=== PATIENT | female | born 1980 | race Caucasian/White ===

== ENCOUNTER 2020-03-14 03:55 | Inpatient (IN) | payer OTHER ==
[~2020-03-14] VITALS: Ht 157.5 cm; Wt 59.0 kg
--- NOTE | 2020-03-14 07:30 | NUR ---
RECEIVED REPORT FROM LINDA DAWN). Addendum: 03/14/20 at 1925 by SUSANNE BEACH RN ADDITIONAL NOTES: ACCORDING TO HUMA CERVANTES) FROM ER DEPT LINDA LIMA, PT IS NEGATIVE FOR RAPID COVID TEST.
--- NOTE | 2020-03-14 08:15 | NUR ---
DISPLAY DIRECTOR ADMISSION NOTES RECEIVED PT ALERT AND ORIENTED X4. AMBULATES INDEPENDENTLY WITH STEADY GAIT. INDEPENDENT WITH BOWEL AND BLADDER HABITS. WITH NO ACUTE DISTRESS AT THIS TIME. NO COMPLAIN OF PAIN OR DISCOMFORT AT THIS TIME. ON ROOM AIR WITH O2 SAT 100%. ADMISSION CARE GIVEN. TELE MONITOR APPLIED PER PROTOCOL WITH READING OF NSR AND HR IN 80S. IV#20 ON LEFT AC INTACT AND FLUSHED WELL. BED KEPT IN LOWEST POSITION POSSIBLE. SAFETY PRECAUTIONS PROVIDED. WILL CONTINUE TO MONITOR.
--- NOTE | 2020-03-14 08:18 | NUR ---
RN NOTES BODY CHECK DONE UPON ADMISSION. SKIN IS INTACT WITH NO REDNESS, OPEN WOUNDS OR OTHER SKIN ISSUES.
[2020-03-14] MEDS ORDERED: INSU100V7 SQ (08:53)
[2020-03-14] MEDS ORDERED: INSU100V36 SQ (08:53)
[2020-03-14] MEDS ORDERED: METH5TAB6 PO (08:53)
[2020-03-14] MEDS ORDERED: BLOO-668 IN (08:53)
[2020-03-14 12:00] VITALS: BP 121/78
[2020-03-14] MEDS ORDERED: INSULIN REGULAR, HUMAN 100 UNIT/ML 3 ML VIAL SQ PRN (12:00)
[2020-03-14] MEDS ORDERED: HYDROCODONE/APAP 5/325MG TABLET PO PRN (12:00)
[2020-03-14] MEDS ORDERED: DEXTROSE 50%-WATER 50 ML DISP.SYRIN IV PRN ×2 (12:00→22:30)
[2020-03-14] MEDS ORDERED: ONDANSETRON HCL/PF 4 MG/2 ML VIAL IVP PRN (12:00)
[2020-03-14] MEDS ORDERED: IV NS 0.9% 1,000 ML IV PRN (12:00)
[2020-03-14] MEDS ORDERED: MAGNESIUM HYDROXIDE 30 ML UDC PO PRN (12:00)
[2020-03-14] MEDS ORDERED: Z GUARD REMEDY 2 OZ OINT TP PRN (12:00)
[2020-03-14] MEDS ORDERED: MAG HYDROX/AL HYDROX/SIMETH 30 ML UDC PO PRN (12:00)
[2020-03-14] MEDS ORDERED: ACETAMINOPHEN 325 MG TABLET PO PRN (12:00)
[2020-03-14] MEDS: BLOOD SUGAR DIAGNOSTIC 1 EACH STRIP VI SCH ×3 (12:32→22:01)
[2020-03-14] MEDS: *INSULIN REGULAR(HUMULIN R)HUM 100 UNIT/ML VIAL SQ PRN ×3 (12:43→22:02)
[2020-03-14 12:46] LABS: BASOPHILS % (AUTO) 0.5 % (0.0-2.0); EOSINOPHILS % (AUTO) 0.9 % (0.0-6.0); HEMATOCRIT 45 % (33-45); HEMOGLOBIN 14.6 g/dL (11.5-14.8); LYMPHOCYTES % (AUTO) 20.8 % (20.0-44.0); MEAN CORPUSCULAR HGB CONC 32 g/dl (31.0-36.0); MEAN CORPUSCULAR VOLUME 92 fL (82-100); MONOCYTES # (AUTO) 0.7 /CMM (0.1-1.30); MONOCYTES % (AUTO) 7.5 % (2.0-12.0); NEUTROPHILS # (AUTO) 6.9 /CMM (1.8-8.9); NEUTROPHILS % (AUTO) 70.3 % (43.0-81.0); PLATELET COUNT (AUTO) 276 /CMM (150-450); RED BLOOD CELL COUNT(AUTO) 4.93 MIL/uL (4.0-5.2); WHITE BLOOD COUNT (AUTO) 9.8 K/uL (4.3-11.0)
[2020-03-14 12:51] LABS: CALCIUM, SERUM 8.1 mg/dL (8.5-10.1); CREATININE 0.6 mg/dL (0.6-1.3); POTASSIUM 3.8 mmol/L (3.5-5.1)
[2020-03-14 16:46] VITALS: BP 128/70
--- NOTE | 2020-03-14 18:53 | NUR ---
CLAIMS COUNSEL TELE NOTES PT REMAINS ALERT AND ORIENTED X4. NOT IN ANY ACUTE DISTRESS. IV#20 ON LEFT AC INTACT AND FLUSHED. INDEPENDENT WITH BED MOBILITY AND BOWEL AND BLADDER HABITS. SAFETY PRECAUTIONS OBSERVED. BED KEPT LOW POSSIBLE. WILL ENDORSE TO NEXT SHIFT FOR ELIDA.
--- NOTE | 2020-03-14 19:30 | NUR ---
RN OPENING NOTE RECEIVED PATIENT IN BED, AO X 4, IN NO S/SX OF ACUTE DISTRESS AT THIS TIME. NO SOB NOTED. PATIENT'S BREATHING IS EVEN AND UNLABORED, SATURATING 100% ON ROOM AIR. HR IS 72. NOTED IV SITE AT LEFT AC G20, PATENT AND FLUSHING WELL, NO S/S OF INFECTION OR INFILTRATION, WITH NS INFUSING AT 100 ML/HR. PATIENT IS AMBULATORY. SAFETY MEASURES IMPLEMENTED PER PROTOCOL. CALL LIGHT WITHIN REACH OF THE PATIENT. WILL CONTINUE TO MONITOR AND REASSESS FOR ANY CHANGES.
[2020-03-14 20:00] VITALS: BP 112/70
--- NOTE | 2020-03-14 21:00 | NUR ---
RN NOTE MRSA SWAB COLLECTED VIA R NOSTRIL. LAB NOTIFIED, SPOKE WITH DANIEL AND ACKNOWLEDGED.
--- NOTE | 2020-03-14 22:00 | NUR ---
RN NOTE ACCUCHECK RESULTED 439, 10 UNITS GIVEN, GRADER PATROL AWARE, DR RIOJAS NOTIFIED. RECEIVED ORDERS FOR LANTUS 15 UNITS SQ HS, AND CHANGE SLIDING SCALE TO AGGRESSIVE.
--- NOTE | 2020-03-14 22:05 | NUR ---
2205 DR. RIOJAS NOTIFIED OF PATIENT'S BLOOD SUGAR OF 439MG/DL. AWAITING CALL BACK. PATIENT AWAKE IN BED. NO SIGNS OF HYPERGLYCEMIA NOTED.
--- NOTE | 2020-03-14 22:09 | NUR ---
9113 DR RIOJAS REPLIED WITH ORDERS TO START PATIENT ON LANTUS AND TO INCREASE SLIDING SCALE TO AGGRESSIVE. ORDER NOTED AND CARRIED OUT PATIENT MADE AWARE OF NEW ORDERS.
[2020-03-14] MEDS ORDERED: *INSULIN REGULAR(HUMULIN R)HUM 100 UNIT/ML VIAL SQ PRN (22:30)
[2020-03-14] MEDS: BLOOD SUGAR DIAGNOSTIC 1 EACH STRIP IN SCH (22:30)
[2020-03-14] MEDS ORDERED: INSULIN GLARGINE, 100 UNIT/ML CARTRIDGE SQ SCH (22:30)
[2020-03-15] VITALS: BP 112/70
--- NOTE | 2020-03-15 03:41 | NUR ---
RN NOTE PATIENT REQUESTED IV LINE AT [facility] REMOVED IT HURTS AND IT BOTHERS HER. SAID IF NOT, SHE WILL TAKE IT OFF BY HERSELF. PATIENT CURRENTLY ON CCHO 60 GM DIET AND NO FLUID RESTRICTIONS. IV LINE REMOVED ASEPTICALLY. ENTREPRENEUR MADE AWARE.
[2020-03-15 04:00] VITALS: BP 93/53
[2020-03-15 06:40] LABS: BASOPHILS % (AUTO) 0.4 % (0.0-2.0); EOSINOPHILS % (AUTO) 1.8 % (0.0-6.0); HEMATOCRIT 38 % (33-45); HEMOGLOBIN 12.9 g/dL (11.5-14.8); LYMPHOCYTES # (AUTO) 2.9 /CMM (0.8-4.8); LYMPHOCYTES % (AUTO) 44.7 % (20.0-44.0); MEAN CORPUSCULAR HGB CONC 34 g/dl (31.0-36.0); MEAN CORPUSCULAR VOLUME 88 fL (82-100); MONOCYTES # (AUTO) 0.7 /CMM (0.1-1.30); MONOCYTES % (AUTO) 11.1 % (2.0-12.0); NEUTROPHILS # (AUTO) 2.8 /CMM (1.8-8.9); PLATELET COUNT (AUTO) 265 /CMM (150-450); RED BLOOD CELL COUNT(AUTO) 4.35 MIL/uL (4.0-5.2); WHITE BLOOD COUNT (AUTO) 6.6 K/uL (4.3-11.0)
[2020-03-15] MEDS: BLOOD SUGAR DIAGNOSTIC 1 EACH STRIP IN SCH ×2 (07:31→11:30)
[2020-03-15] MEDS: INSULIN REGULAR, HUMAN 100 UNIT/ML 3 ML VIAL SQ PRN ×2 (07:34→11:36)
--- NOTE | 2020-03-15 07:39 | NUR ---
RN CLOSING NOTE PATIENT REMAINS IN ROOM. NO SIGNS OF RESPIRATORY DISTRESS. SAFETY MEASURES IMPLEMENTED, CALL LIGHT WITHIN REACH OF PATIENT. ALL NEEDS ADDRESSED DURING THE SHIFT. ALL DUE MEDS GIVEN ORDERED & SCHEDULED; PATIENT TOLERATED WELL. ENDORSED TO JULIA ROMERO FOR CONTINUATION OF CARE.
[2020-03-15 07:42] LABS: CALCIUM, SERUM 8.3 mg/dL (8.5-10.1); CREATININE 0.4 mg/dL (0.6-1.3); POTASSIUM 2.9 mmol/L (3.5-5.1)
--- NOTE | 2020-03-15 08:00 | NUR ---
RN NOTES RECEIVED PATIENT IN THE BED RESTING. A/O X4, REFUSED PAIN, NO ACUTE RESPIRATORY DISTRESS. PATIENT REFUSED IV ACCESS BECAUSE OF PAINFUL. PATIENT SELF CARE, TOLERATED BREAKFAST WELL. WILL CONTINUED MONITORING.
[2020-03-15 08:39] VITALS: BP 101/65
[2020-03-15] MEDS ORDERED: AMOX-430 PO (09:24)
--- NOTE | 2020-03-15 09:43 | NUR ---
RN NOTES SEEN PATIENT BY HOSPITALIST PATIENT GOING HOME SELF CARE.
[2020-03-15] MEDS ORDERED: POTASSIUM CHLORIDE 20 MEQ TAB.PRT.SR PO ONE (10:30)
[2020-03-15 12:00] VITALS: BP 105/67
--- NOTE | 2020-03-15 13:18 | NUR ---
RENE INSULATION WORKER NOTES PATIENT DISCHARGE AT THIS TIME GOING HOME SELF CARE. PATIENT STABLE REFUSED PAIN, BS-295 MG/DL COVERAGE GIVEN, V/S WNL. MED RECONCILIATION AND DISCHARGE ORDERS REVIEWED AND EXPLAINED TO THE PATIENT. PATIENT VERBALIZED UNDERSTANDING. BELONGING WITH THE PATIENT, PATIENT SIGN PAPERWORK. PRESCRIPTION HANDED TO THE PATIENT. PATIENT WILL FOLLOW PRIMARY MD. PATIENT ESCORT[facility] TO THE [facility] FOR SAFETY. PATIENT PHOTOGRAPHIC EQUIPMENT TECHNICIAN BY FRIEND NAME RENY PHONE # [phone].
== END 2020-03-15 13:35 | disposition home or self-care (01) | DRG 420 ==
LOC: TELE1 08:21 → MEDSG1 13:02
PROVIDERS: ADMIT Internal Medicine; ATTEND Internal Medicine
DX: E11.00 Type 2 diabetes mellitus with hyperosmolarity without nonketotic hyperglycemic-hyperosmolar coma (NKHHC) (principal); E86.0 Dehydration; E87.6 Hypokalemia; E87.1 Hypo-osmolality and hyponatremia; E05.90 Thyrotoxicosis, unspecified without thyrotoxic crisis or storm; E11.65 Type 2 diabetes mellitus with hyperglycemia; Z79.4 Long term (current) use of insulin; K05.319 Chronic periodontitis, localized, unspecified severity; E86.1 Hypovolemia; N17.9 Acute kidney failure, unspecified
CPT/HCPCS: 36415; 80048-TC; 82962-TC; 85025-TC; 87040-TC; 87081-TC; G0378; J1815; J7030

== ENCOUNTER 2020-07-19 19:33 | Inpatient (IN) | payer OTHER ==
[~2020-07-19] VITALS: Ht 157.5 cm; Wt 45.4 kg
[~2020-07-19 19:33] MED LIST: AMOX-430 PO; BLOO-668 IN; INSU100V36 SQ; INSU100V7 SQ; METH5TAB6 PO
--- NOTE | 2020-07-19 19:43 | NUR ---
BG 435
[2020-07-19 19:57] LABS: BASOPHILS # (AUTO) 0.1 /CMM (0.0-0.2); BASOPHILS % (AUTO) 0.5 % (0.0-2.0); EOSINOPHILS % (AUTO) 0.1 % (0.0-6.0); HEMATOCRIT 53 % (33-45); LYMPHOCYTES % (AUTO) 15.9 % (20.0-44.0); MEAN CORPUSCULAR HGB CONC 32 g/dl (31.0-36.0); MEAN CORPUSCULAR VOLUME 96 fL (82-100); MONOCYTES # (AUTO) 1.2 /CMM (0.1-1.30); MONOCYTES % (AUTO) 9.3 % (2.0-12.0); NEUTROPHILS # (AUTO) 9.4 /CMM (1.8-8.9); NEUTROPHILS % (AUTO) 74.2 % (43.0-81.0); PLATELET COUNT (AUTO) 341 /CMM (150-450); RED BLOOD CELL COUNT(AUTO) 5.49 MIL/uL (4.0-5.2); WHITE BLOOD COUNT (AUTO) 12.6 K/uL (4.3-11.0)
--- NOTE | 2020-07-19 20:21 | NUR ---
RADIOLOGY AT BEDSIDE FOR CXR
[2020-07-19] MEDS ORDERED: IV NS 0.9% 1,000 ML BAG IV ONE ×2 (20:30→22:00)
[2020-07-19] MEDS ORDERED: LORAZEPAM INJ 2 MG/ML VIAL ONE (20:58)
[2020-07-19] MEDS ORDERED: LORAZEPAM INJ 2 MG/ML VIAL IV ONE (21:00)
[2020-07-19 21:07] LABS: ALANINE AMINOTRANSFERASE 17 U/L (12-78); ALBUMIN 3.3 g/dL (3.4-5.0); ALKALINE PHOSPHATASE 128 U/L (46-116); ASPARTATE AMINOTRANSFERASE 13 U/L (15-37); B-TYPE NATRIURETIC PEPTIDE 44 PG/ML (0-125); BILIRUBIN,DIRECT 0.1 mg/dL (0.0-0.2); BILIRUBIN,TOTAL 0.3 mg/dL (0.2-1.0); CALCIUM, SERUM 8.3 mg/dL (8.5-10.1); CHLORIDE 98 mmol/L (98-107); CREATININE 0.8 mg/dL (0.6-1.3); SODIUM SERUM 130 mmol/L (136-145); TOTAL PROTEIN, SERUM 7.4 g/dL (6.4-8.2); UREA NITROGEN, BLOOD 16 mg/dL (7-18)
--- NOTE | 2020-07-19 21:19 | NUR ---
CO2 LESS THAN 5 GLUCOSE 418
[2020-07-19 21:20] LABS: CARBON DIOXIDE < 5 mmol/L (21-32); GLUCOSE 418 mg/dL (74-106)
[2020-07-19] MEDS ORDERED: INSULIN REGULAR, HUMAN 100 UNIT/ML 10 ML VIAL ONE (21:55)
[2020-07-19 21:56] LABS: ABG BASE EXCESS -29.9 mmol/L; ABG OXYGEN SATURATION 98.2 % (92.0-98.5); ABG PH 6.886 (7.350-7.450); ABG PO2 162.8 mmHg (75.0-100.0); AaDO2 23.9 mmHg; COHb 0.2 % (0.5-1.5); MetHb 0.5 % (0.0-1.5); O2Hb 97.5 % (94.0-97.0); SITE, ABG Right Radial; VENT MODE, BG 2 LNC
[2020-07-19] MEDS ORDERED: INS (REG) DRIP 100 U/100 ML NS IV PRN ×2 (22:00)
[2020-07-19] MEDS ORDERED: Potassium Chloride 30 MEQ in IV NS 0.9% 1,000 ML IV ONE (22:00)
[2020-07-19] MEDS ORDERED: INSULIN REGULAR, HUMAN 100 UNIT in IV NS 0.9% 99 ML IV PRN ×4 (22:00→22:30)
[2020-07-19] MEDS ORDERED: ACETAMINOPHEN 325 MG TABLET PO PRN (22:30)
[2020-07-19] MEDS ORDERED: Sodium Bicarbonate 150 MEQ in IV NS 0.9% 1,000 ML IV PRN (22:30)
[2020-07-19] MEDS ORDERED: ONDANSETRON HCL/PF 4 MG/2 ML VIAL IVP PRN (22:30)
--- NOTE | 2020-07-19 22:43 | NUR ---
COVID SWAB SENT TO LAB
--- NOTE | 2020-07-19 23:00 | NUR ---
CLINICAL INFORMATION GIVEN TO CASE LILIA POOL. PER CORINE, VERBAL AUTH TO ADMIT TO [facility] ER
--- NOTE | 2020-07-19 23:02 | NUR ---
LAB CALLED REGARDING NEGATIVE COVID RESULT.
--- NOTE | 2020-07-19 23:16 | NUR ---
Pt receiving insulin infusion for DKA. Pt is confused and withdrawns, follows most simple commands. Restless. will continue to monitor. Awaiting bed assignment to transfer to ICU.
[2020-07-19 23:22] LABS: BILIRUBIN,URINE Negative (NEGATIVE); COLOR,URINE YELLOW (YELLOW); LEUKOCYTE ESTERASE ,URINE Negative (NEGATIVE); NITRITE, URINE Negative (NEGATIVE); PROTEIN,URINE 100 mg/dl (NEGATIVE); UGLUCOSE 500 MG/DL mg/dL (NEGATIVE); UROBILINOGEN,URINE 0.2 EU/dL (0.2)
[2020-07-19 23:28] LABS: BACTERIA,URINE Rare /HPF (None Seen); SQUAMOUS EPITHELIAL CELL,UR Few /HPF (None Seen); WBC,URINE NONE SEEN /HPF (0-3)
[2020-07-20] VITALS (26 sets, daily range): BP systolic 84–145; BP diastolic 49–78
--- NOTE | 2020-07-20 | NUR ---
agricultural equipment sales engineer. admission , pt being admitted from er via [facility]. for dka, pt open eyes. very lethargic. room air sat 98%. iv rt and lt hand. insulin drip started from er 5units/h, npo. hob elevated. temperature 93. shallow breathing. blood sugar check q1h. will continue to monitor
[2020-07-20] MEDS: BLOOD SUGAR DIAGNOSTIC 1 EACH STRIP IN SCH ×16 (00:13→16:24)
[2020-07-20 00:20] LABS: CALCIUM, SERUM 7.8 mg/dL (8.5-10.1); CHLORIDE 101 mmol/L (98-107); CREATININE 0.7 mg/dL (0.6-1.3); MAGNESIUM 1.8 mg/dL (1.8-2.4); PHOSPHORUS 2.9 mg/dL (2.5-4.9); POTASSIUM 4.1 mmol/L (3.5-5.1); SODIUM SERUM 133 mmol/L (136-145); UREA NITROGEN, BLOOD 16 mg/dL (7-18)
[2020-07-20 00:23] LABS: CARBON DIOXIDE < 5 mmol/L (21-32); GLUCOSE 393 mg/dL (74-106)
[2020-07-20] MEDS ORDERED: SODIUM BICARBONATE SYR 50 MEQ/50 ML DISP.SYRIN ONE (00:37)
[2020-07-20] MEDS: ENOXAPARIN SODIUM 40 MG/0.4 ML DISP.SYRIN SQ SCH ×2 (00:39→22:10)
[2020-07-20] MEDS ORDERED: POTASSIUM CL. PREMIX PERIPHER. 100 ML ONE (00:56)
[2020-07-20] MEDS: Potassium Chloride 40 MEQ in IV NS 0.9% 1,000 ML IV PRN ×4 (00:58→22:14)
--- NOTE | 2020-07-20 01:00 | NUR ---
curriculum advisory teacher. f/c inserted with out difficult. clear urine draining.
--- NOTE | 2020-07-20 03:06 | NUR ---
field horticultural specialty grower. temperature 93. pao hoyt initiated. will continue to monitor
[2020-07-20 04:25] LABS: BASOPHILS # (AUTO) 0.1 /CMM (0.0-0.2); BASOPHILS % (AUTO) 0.6 % (0.0-2.0); HEMATOCRIT 43 % (33-45); HEMOGLOBIN 14.1 g/dL (11.5-14.8); LYMPHOCYTES # (AUTO) 1.1 /CMM (0.8-4.8); MEAN CORPUSCULAR HGB CONC 33 g/dl (31.0-36.0); MEAN CORPUSCULAR VOLUME 92 fL (82-100); MONOCYTES # (AUTO) 1.6 /CMM (0.1-1.30); MONOCYTES % (AUTO) 11.7 % (2.0-12.0); NEUTROPHILS # (AUTO) 10.8 /CMM (1.8-8.9); NEUTROPHILS % (AUTO) 79.7 % (43.0-81.0); PLATELET COUNT (AUTO) 232 /CMM (150-450); RED BLOOD CELL COUNT(AUTO) 4.63 MIL/uL (4.0-5.2); WHITE BLOOD COUNT (AUTO) 13.5 K/uL (4.3-11.0)
[2020-07-20 04:57] LABS: ALBUMIN 2.6 g/dL (3.4-5.0); BILIRUBIN,TOTAL 0.4 mg/dL (0.2-1.0); CALCIUM, SERUM 7.8 mg/dL (8.5-10.1); CREATININE 0.6 mg/dL (0.6-1.3); MAGNESIUM 1.4 mg/dL (1.8-2.4); PHOSPHORUS 1.5 mg/dL (2.5-4.9); POTASSIUM 3.1 mmol/L (3.5-5.1)
[2020-07-20 05:08] LABS: THYROID STIMULATING HORMONE 0.07 uIU/mL (0.358-3.74)
[2020-07-20] MEDS ORDERED: SODIUM BICARBONATE SYR 50 MEQ/50 ML DISP.SYRIN IV ONE (05:30)
[2020-07-20] MEDS ORDERED: POTASSIUM PHOSPHATE MM 5 MMOL in IV NS 0.9% 100 ML IV SCH (05:30)
[2020-07-20] MEDS: Magnesium 1GM/D5W 100ML PREMIX 100 ML IV SCH ×4 (05:40→09:40)
--- NOTE | 2020-07-20 06:58 | NUR ---
specialist icu. pt more awake, follow commands. if rt hand 20g. insulin drip per blood sugar . hob elevated. judy hugger off. temp 100. at this time. cooling measure initiated. bicarb drip 100ml/h. blood sugar below 150. notified candace mcguire. no ivf changes order. will continue to monitor.
[2020-07-20 07:26] LABS: ABG BASE EXCESS -9.1 mmol/L; ABG OXYGEN SATURATION 98.4 % (92.0-98.5); ABG PH 7.375 (7.350-7.450); ABG PO2 113.9 mmHg (75.0-100.0); AaDO2 5.9 mmHg; COHb 0.5 % (0.5-1.5); MetHb 0.4 % (0.0-1.5); O2Hb 97.5 % (94.0-97.0); SITE, ABG Right Radial; VENT MODE, BG ROOM AIR
[2020-07-20] MEDS: POTASSIUM PHOSPHATE MM 5 MMOL in IV NS 0.9% 100 ML IV SCH ×3 (07:28→23:30)
[2020-07-20 08:18] LABS: CALCIUM, SERUM 7.4 mg/dL (8.5-10.1); CREATININE 0.5 mg/dL (0.6-1.3)
[2020-07-20 08:21] LABS: POTASSIUM 2.6 mmol/L (3.5-5.1)
[2020-07-20 08:29] LABS: MAGNESIUM 2.1 mg/dL (1.8-2.4)
[2020-07-20] MEDS: PANTOPRAZOLE 40 MG VIAL IV SCH (09:40)
--- NOTE | 2020-07-20 09:40 | NUR ---
Informed Dr. Melendez that pt has a critical potassium of 2.6. Informed by Dr Melendez that Dr. Romero will order the potassium replacement.
[2020-07-20] MEDS ORDERED: Sodium Bicarbonate 150 MEQ in IV NS 0.9% 1,000 ML IV SCH (10:00)
[2020-07-20] MEDS: METHIMAZOLE (5MG) 5 MG TABLET PO SCH (11:43)
[2020-07-20] MEDS ORDERED: IV D5/0.45 NACL 1,000 ML IV ONE (13:00)
--- NOTE | 2020-07-20 13:00 | NUR ---
Pt refused 1300 BG as she is upset that she is NPO and cannot have food as her AG is still elevated. Will attempt again once pt is calm.
[2020-07-20 13:24] LABS: CALCIUM, SERUM 7.1 mg/dL (8.5-10.1); CREATININE 0.5 mg/dL (0.6-1.3); MAGNESIUM 2.3 mg/dL (1.8-2.4); PHOSPHORUS 1.3 mg/dL (2.5-4.9)
[2020-07-20 13:25] LABS: POTASSIUM 2.6 mmol/L (3.5-5.1)
--- NOTE | 2020-07-20 13:25 | NUR ---
Infomed Dr. Melendez that pt has a critical potassium of 2.6. Awaiting orders.
[2020-07-20] MEDS ORDERED: POTASSIUM CL. PREMIX PERIPHER. 50 ML IV SCH (14:30)
[2020-07-20] MEDS ORDERED: POTASSIUM CHLORIDE 20 MEQ TAB.PRT.SR PO ONE (14:45)
[2020-07-20] MEDS ORDERED: INSULIN GLARGINE, 100 UNIT/ML CARTRIDGE SQ ONE (15:00)
[2020-07-20] MEDS ORDERED: INSULIN GLARGINE, 100 UNIT/ML CARTRIDGE SQ SCH (15:00)
[2020-07-20] MEDS: POTASSIUM CL. PREMIX PERIPHER. 50 ML IV SCH ×3 (16:29→19:00)
[2020-07-20] MEDS ORDERED: *INSULIN REGULAR(HUMULIN R)HUM 100 UNIT/ML VIAL SQ PRN (17:30)
[2020-07-20] MEDS ORDERED: INSULIN REGULAR, HUMAN 100 UNIT/ML 3 ML VIAL SQ PRN (17:30)
[2020-07-20] MEDS ORDERED: DEXTROSE 50%-WATER 50 ML DISP.SYRIN IV PRN (17:30)
[2020-07-20] MEDS: POTASSIUM PHOSPHATE MM 7.5 MMOL in IV NS 0.9% 100 ML IV SCH ×2 (18:28→22:07)
[2020-07-20] MEDS: BLOOD SUGAR DIAGNOSTIC 1 EACH STRIP VI SCH ×2 (18:47→22:24)
[2020-07-21] VITALS (17 sets, daily range): BP systolic 82–144; BP diastolic 42–73
[2020-07-21] MEDS ORDERED: DEXTROSE 50%-WATER 50 ML DISP.SYRIN IV PRN (00:30)
[2020-07-21] MEDS ORDERED: IV PREMIX 0.45% NS + KCL 1,000 ML IV ONE (00:32)
[2020-07-21 00:37] LABS: CALCIUM, SERUM 7.2 mg/dL (8.5-10.1); CREATININE 0.6 mg/dL (0.6-1.3); POTASSIUM 3.4 mmol/L (3.5-5.1)
[2020-07-21 00:41] LABS: MAGNESIUM 1.7 mg/dL (1.8-2.4); PHOSPHORUS 1.7 mg/dL (2.5-4.9)
[2020-07-21] MEDS: POTASSIUM PHOSPHATE MM 5 MMOL in IV NS 0.9% 100 ML IV SCH ×3 (01:30→10:00)
[2020-07-21 05:03] LABS: BASOPHILS # (AUTO) 0.1 /CMM (0.0-0.2); BASOPHILS % (AUTO) 0.7 % (0.0-2.0); EOSINOPHILS % (AUTO) 0.7 % (0.0-6.0); HEMATOCRIT 34 % (33-45); HEMOGLOBIN 11.9 g/dL (11.5-14.8); LYMPHOCYTES # (AUTO) 2.7 /CMM (0.8-4.8); LYMPHOCYTES % (AUTO) 36.4 % (20.0-44.0); MEAN CORPUSCULAR HGB CONC 35 g/dl (31.0-36.0); MEAN CORPUSCULAR VOLUME 89 fL (82-100); MONOCYTES # (AUTO) 0.7 /CMM (0.1-1.30); MONOCYTES % (AUTO) 9.2 % (2.0-12.0); NEUTROPHILS # (AUTO) 3.9 /CMM (1.8-8.9); PLATELET COUNT (AUTO) 201 /CMM (150-450); RED BLOOD CELL COUNT(AUTO) 3.84 MIL/uL (4.0-5.2); WHITE BLOOD COUNT (AUTO) 7.4 K/uL (4.3-11.0)
[2020-07-21 05:18] LABS: CALCIUM, SERUM 7.5 mg/dL (8.5-10.1); CREATININE 0.4 mg/dL (0.6-1.3); MAGNESIUM 1.9 mg/dL (1.8-2.4); PHOSPHORUS 1.3 mg/dL (2.5-4.9); POTASSIUM 2.9 mmol/L (3.5-5.1)
--- NOTE | 2020-07-21 07:15 | NUR ---
SAND WHEELER NOTES RECEIVED PATIENT AOX3 , RA SPO2 OF 100% DENIES SOB AND DISCOMFORT , SR 78 ON BEDSIDE MONITOR , SKIN INTACT , FC DRAINING VIA GRAVITY WITH CLEAR YELLOW URINE , PIV PATENT AND INTACT WITH 1/2 NS WITH 20 MEQ KCL @ 100ML/HR INFUSING WELL , ALL NEEDS ATTENDED , WILL CONTINUE TO MONITOR .
[2020-07-21] MEDS: METHIMAZOLE (5MG) 5 MG TABLET PO SCH (08:07)
[2020-07-21] MEDS: PANTOPRAZOLE 40 MG VIAL IV SCH (08:07)
[2020-07-21] MEDS: BLOOD SUGAR DIAGNOSTIC 1 EACH STRIP IN SCH ×4 (08:11→22:23)
[2020-07-21] MEDS: INSULIN REGULAR, HUMAN 100 UNIT/ML 3 ML VIAL SQ PRN ×3 (08:27→17:44)
--- NOTE | 2020-07-21 08:27 | NUR ---
ISO COORDINATOR NOTES SANDHU CATHETER DC ORDERED , TOLERATED WELL , NOTED WITH 350 ML CLEAR URINE OUTPUT , WILL CONTINUE TO MONITOR,
--- NOTE | 2020-07-21 09:00 | NUR ---
EXTRACTOR LOADER AND UNLOADER NOTES PT ABLE TO URINATE S/P SANDHU CATH REMOVAL , NOTED WITH 100 ML CLEAR YELLOW URINE ,
[2020-07-21] MEDS ORDERED: POTASSIUM CHLORIDE 20 MEQ TAB.PRT.SR PO ONE (11:45)
--- NOTE | 2020-07-21 12:00 | NUR ---
HEALTHCARE MARKETER NOTES PT IS COMPLAINING THAT HER RADHA RING IS MISSING , BELONGING LIST CHECKED , BELONGINGS CHECKED WITH SYDNEE DELONG , NO RADHA RING WAS FOUND , PT WANTS TO SPEAK WITH NURSING PRODUCTION ENGINEER , ARNOLDO NOTIFIED , DISCUSSED THAT NO RADHA RING WAS FOUND IN THE BAG OR AT THE BELONGINGS LIST , PER NURSING PRODUCTION ENGINEER SHE WILL FOLLOW UP BY THURSDAY ,
[2020-07-21 12:35] LABS: CALCIUM, SERUM 7.6 mg/dL (8.5-10.1); CREATININE 0.4 mg/dL (0.6-1.3); POTASSIUM 3.4 mmol/L (3.5-5.1)
--- NOTE | 2020-07-21 13:21 | NUR ---
TITLE AGENT NOTES REPORT GIVEN TO TERA FOR CONTINUITY OF CARE , ALL QUESTIONS ANSWERED , PT STABLE AT THIS TIME , NO ACUTE EVENTS NOTED , VSS , PIV PATENT AND INTACT WITH IVF INFUSING AT ORDERED RATE, SKIN IS INTACT , BELONGINGS CHECKED BY TERA AND ME ,
--- NOTE | 2020-07-21 13:39 | NUR ---
MS/RN NOTES RECEIVED REPORT FROM SUGEY LEE SANFORIZER PATIENT IS ALERT AND ORIENTED X3. PATIENT IN ROOM AIR. PATIENT IN NO APPARENT RESPIRATORY DISTRESS NOTED. NO COMPLAINED OF PAIN AT THIS TIME. BELONGING WAS CHECKED WITH SUGEY SANFORIZER CO- WITNESS. PATIENT WAS CLAIMING THAT SHE HAVE RADHA PER SUGEY SANFORIZER AGILE DEVELOPER WAS AWARE. WILL CONTINUE TO MONITOR.
[2020-07-21] MEDS ORDERED: K PHOS NEUTRAL 250 MG TABLET PO ONE (15:30)
--- NOTE | 2020-07-21 18:34 | NUR ---
TELE/RN CLOSING NOTES PATIENT IS ON BED AWAKE ALERT AND ORIENTED X3. PATIENT IS ON ROOM AIR SATURATION 94%. PATIENT IN NO APPARENT RESPIRATORY DISTRESS NOTED. NO COMPLAINED OF PAIN NOTED AT THIS TIME. ALL DUE MEDICATIONS WAS GIVEN. IV ACCESS AT LEFT FOREARM # 22 G WITH IV FLUID OF 1/2 NS WITH 20 KCL AT 100 ML/HR ON AND INFUSING WELL. SAFETY PRECAUTIONS WAS IN PLACED. BED IN LOWEST POSITION AND LOCKED. SIDERAILS UP X2. CALL LIGHT WITHIN REACH. WILL ENDORSED TO MANAGER ALLIANCE FOR. ELIDA.
--- NOTE | 2020-07-21 19:30 | NUR ---
MS/RN OPENING NOTES RECEIVED PATIENT IN BED RESTING. PATIENT IS ALERT AND ORIENTED X 4. PATIENTS BREATHING IS EVEN AND UNLABORED. NO SIGN OF SOB OR RESPIRATORY DISTRESS NOTED. PATIENT STATES NO PAIN AT THIS TIME. PATIENT HAS IV ACCESS ON LEFT FOREARM. SAFETY MEASURES ARE IN PLACE, BED IS LOCKED AND PLACED IN THE LOWEST POSITION, SIDE RAILS UP X 2, CALL LIGHT IS WITHIN REACH. WILL CONTINUE TO MONITOR THROUGH OUT SHIFT.
[2020-07-21] MEDS: ENOXAPARIN SODIUM 40 MG/0.4 ML DISP.SYRIN SQ SCH (21:36)
[2020-07-21] MEDS ORDERED: INSULIN GLARGINE, 100 UNIT/ML CARTRIDGE SQ SCH (22:00)
[2020-07-21] MEDS: *INSULIN REGULAR(HUMULIN R)HUM 100 UNIT/ML VIAL SQ PRN (22:27)
[2020-07-22] MEDS: BLOOD SUGAR DIAGNOSTIC 1 EACH STRIP IN SCH ×4 (06:33→21:33)
[2020-07-22] MEDS: INSULIN REGULAR, HUMAN 100 UNIT/ML 3 ML VIAL SQ PRN ×3 (06:36→16:53)
--- NOTE | 2020-07-22 06:50 | NUR ---
MS/RN CLOSING NOTES PATIENT SITTING ON EDGE OF BED. PATIENT IS ALERT AND ORIENTED X 4. PATIENTS BREATHING IS EVEN AND UNLABORED. NO SIGN OF SOB OR RESPIRATORY DISTRESS NOTED. PATIENT STATES NO PAIN AT THIS TIME. PATIENT HAS IV ACCESS ON LEFT FOREARM FLUSHING WELL. ALL NEEDS HAVE BEEN MET DURING SHIFT. SAFETY MEASURES ARE IN PLACE, BED IS LOCKED AND PLACED IN THE LOWEST POSITION, SIDE RAILS UP X 2, CALL LIGHT IS WITHIN REACH. WILL ENDORSE CARE TO DAY SHIFT NURSE.
[2020-07-22 07:00] LABS: BASOPHILS % (AUTO) 0.7 % (0.0-2.0); EOSINOPHILS % (AUTO) 0.7 % (0.0-6.0); HEMATOCRIT 40 % (33-45); HEMOGLOBIN 13.9 g/dL (11.5-14.8); LYMPHOCYTES % (AUTO) 49.7 % (20.0-44.0); MEAN CORPUSCULAR HGB CONC 34 g/dl (31.0-36.0); MEAN CORPUSCULAR VOLUME 90 fL (82-100); MONOCYTES # (AUTO) 0.5 /CMM (0.1-1.30); MONOCYTES % (AUTO) 8.6 % (2.0-12.0); NEUTROPHILS # (AUTO) 2.4 /CMM (1.8-8.9); NEUTROPHILS % (AUTO) 40.3 % (43.0-81.0); PLATELET COUNT (AUTO) 227 /CMM (150-450)
[2020-07-22 07:19] LABS: CALCIUM, SERUM 8.4 mg/dL (8.5-10.1); CREATININE 0.5 mg/dL (0.6-1.3); MAGNESIUM 1.8 mg/dL (1.8-2.4); PHOSPHORUS 2.6 mg/dL (2.5-4.9); POTASSIUM 4.4 mmol/L (3.5-5.1)
[2020-07-22] MEDS: PANTOPRAZOLE 40 MG TABLET.DR PO SCH (07:34)
--- NOTE | 2020-07-22 07:34 | NUR ---
TELE/RN OPENING NOTES RECEIVED PATIENT ON BED AWAKE ALERT AND ORIENTED X4. PATIENT IN NO APPARENT RESPIRATORY DISTRESS NOTED. NO COMPLAINED OF PAIN NOTED AT THIS TIME. WILL CONTINUE TO MONITOR.
[2020-07-22 07:51] VITALS: BP 107/84
[2020-07-22] MEDS: METHIMAZOLE (5MG) 5 MG TABLET PO SCH (08:50)
[2020-07-22 16:23] VITALS: BP 134/57
--- NOTE | 2020-07-22 18:41 | NUR ---
MS/RN CLOSING NOTES PATIENT IS ON BED AWAKE ALERT AND ORIENTED X3. PATIENT IS ON ROOM AIR SATURATION 97%. PATIENT IN NO APPARENT RESPIRATORY DISTRESS NOTED. NO COMPLAINED OF PAIN NOTED AT THIS TIME. ALL DUE MEDICATIONS WAS GIVEN. IV ACCESS AT LEFT FOREARM # 22 G WITH IV FLUID OF 1/2 NS WITH 20 KCL AT 100 ML/HR ON AND INFUSING WELL. SAFETY PRECAUTIONS WAS IN PLACED. BED IN LOWEST POSITION AND LOCKED. SIDERAILS UP X2. CALL LIGHT WITHIN REACH. WILL ENDORSED TO DIRECTOR OF OFFICIATING FOR. ELIDA.
[2020-07-22 20:07] VITALS: BP 93/66
[2020-07-22] MEDS: ENOXAPARIN SODIUM 40 MG/0.4 ML DISP.SYRIN SQ SCH (21:21)
[2020-07-22] MEDS: *INSULIN REGULAR(HUMULIN R)HUM 100 UNIT/ML VIAL SQ PRN (21:40)
[2020-07-22] MEDS ORDERED: INSULIN GLARGINE, 100 UNIT/ML CARTRIDGE SQ SCH (22:00)
[2020-07-23 06:40] LABS: BASOPHILS # (AUTO) 0.1 /CMM (0.0-0.2); BASOPHILS % (AUTO) 1.1 % (0.0-2.0); EOSINOPHILS % (AUTO) 0.8 % (0.0-6.0); HEMATOCRIT 35 % (33-45); HEMOGLOBIN 12.1 g/dL (11.5-14.8); LYMPHOCYTES # (AUTO) 3.4 /CMM (0.8-4.8); LYMPHOCYTES % (AUTO) 58.5 % (20.0-44.0); MEAN CORPUSCULAR HGB CONC 35 g/dl (31.0-36.0); MEAN CORPUSCULAR VOLUME 89 fL (82-100); MONOCYTES # (AUTO) 0.6 /CMM (0.1-1.30); MONOCYTES % (AUTO) 9.8 % (2.0-12.0); NEUTROPHILS # (AUTO) 1.7 /CMM (1.8-8.9); NEUTROPHILS % (AUTO) 29.8 % (43.0-81.0); PLATELET COUNT (AUTO) 242 /CMM (150-450); RED BLOOD CELL COUNT(AUTO) 3.91 MIL/uL (4.0-5.2); WHITE BLOOD COUNT (AUTO) 5.9 K/uL (4.3-11.0)
--- NOTE | 2020-07-23 06:50 | NUR ---
MS/RN CLOSING NOTES PATIENT IN BED RESTING. PATIENT IS ALERT AND ORIENTED X 4. PATIENTS BREATHING IS EVEN AND UNLABORED. NO SIGN OF SOB OR RESPIRATORY DISTRESS NOTED. PATIENT STATES NO PAIN AT THIS TIME. PATIENT HAS IV ACCESS ON LEFT FOREARM INTACT FLUSHING WELL. SAFETY MEASURES ARE IN PLACE, BED IS LOCKED AND PLACED IN THE LOWEST POSITION, SIDE RAILS UP X 2, CALL LIGHT IS WITHIN REACH. WILL ENDORSE CARE TO DAY SHIFT NURSE.
--- NOTE | 2020-07-23 07:09 | NUR ---
MS RN OPENING NOTES RECEIVED PATIENT IN BED. A/O X4. ON ROOM AIR, TOLERATING WELL. NO SOB NOTED. IN NO APPARENT DISTRESS. DENIES ANY PAIN AT THIS TIME. IV ACCESS ON L FA #20 G, INTACT, 1/2 NS KCl RUNNING @ 100 ML/HR. SAFETY MEASURES MAINTAINED. BED IN LOWEST POSITION, BRAKES LOCKED. SIDE RAILS UP X2. CALL LIGHT WITHIN REACH. WILL CONTINUE PLAN OF CARE.
[2020-07-23] MEDS: BLOOD SUGAR DIAGNOSTIC 1 EACH STRIP IN SCH ×2 (07:15→11:15)
[2020-07-23 07:55] LABS: CALCIUM, SERUM 8.5 mg/dL (8.5-10.1); CREATININE 0.3 mg/dL (0.6-1.3); MAGNESIUM 1.7 mg/dL (1.8-2.4); PHOSPHORUS 4.1 mg/dL (2.5-4.9); POTASSIUM 3.7 mmol/L (3.5-5.1)
--- NOTE | 2020-07-23 08:05 | NUR ---
MS RN NOTES PATIENT WAS VERBALIZING A LITTLE DIZZY AND WANTS HER BS TO BE TAKEN. BS 242. WILL CONTINUE TO MONITOR THROUGHOUT THE SHIFT.
[2020-07-23 08:20] VITALS: BP 94/59
[2020-07-23] MEDS: PANTOPRAZOLE 40 MG TABLET.DR PO SCH (08:27)
[2020-07-23] MEDS: METHIMAZOLE (5MG) 5 MG TABLET PO SCH (08:28)
[2020-07-23] MEDS: Magnesium 1GM/D5W 100ML PREMIX 100 ML IV SCH ×2 (09:55→10:56)
[2020-07-23] MEDS: INSULIN REGULAR, HUMAN 100 UNIT/ML 3 ML VIAL SQ PRN (11:11)
[2020-07-23] MEDS ORDERED: INSU100V7 SQ (11:40)
--- NOTE | 2020-07-23 15:20 | NUR ---
MS NR NOTES PATIENT IS DISCHARGED. LEFT THE FACILITY VIA CAR WITH HER MOM. HEALTH TEACHING AND DISCHARGE INSTRUCTIONS WERE GIVEN. PATIENT VERBALIZED UNDERSTANDING. IV ACCESS AND BADGE REMOVED. VS BP 108/73 OH 78 RR 15 T 98.3 SAO2 96%
[2020-07-23] MEDS ORDERED: INSULIN GLARGINE, 100 UNIT/ML CARTRIDGE SQ SCH (22:00)
== END 2020-07-23 15:20 | disposition home or self-care (01) | DRG 420 ==
LOC: ER 19:39 → ICU 23:23 → MED 07-21 12:58
PROVIDERS: ADMIT Registered Nurse; ATTEND Student in an Organized Health Care Education/Training Program
DX: E11.10 Type 2 diabetes mellitus with ketoacidosis without coma (principal); D72.829 Elevated white blood cell count, unspecified; Z79.4 Long term (current) use of insulin; E05.90 Thyrotoxicosis, unspecified without thyrotoxic crisis or storm; E83.39 Other disorders of phosphorus metabolism; E87.6 Hypokalemia; F19.11 Other psychoactive substance abuse, in remission; Z20.822 Contact with and (suspected) exposure to COVID-19; Z91.19 Patient's noncompliance with other medical treatment and regimen; E44.1 Mild protein-calorie malnutrition; Z68.1 Body mass index [BMI] 19.9 or less, adult; G93.41 Metabolic encephalopathy
CPT/HCPCS: 36415; 36600; 71045-TC; 80048-TC; 80053-TC; 80061-TC; 80076-TC; 81001; 82010-TC; 82140-TC; 82962-TC; 83735-TC; 83880; 84100-TC; 84443-TC; 84484-TC; 84702-TC; 85025-TC; 87040-TC; 87081-TC; 97116-TC; 97530-TC; C9113; C9803; G0378; G0480; J1650; J1815; J2060; J3475; J3480; J3490; J7030; J7040

== ENCOUNTER 2020-09-24 17:34 | Inpatient (IN) | payer OTHER ==
[~2020-09-24] VITALS: Ht 157.5 cm; Wt 47.6 kg
--- NOTE | 2020-09-24 17:55 | NUR ---
feeling short of breath, nausea, blood sugar reading high since am. Patient a/ox4, breathing rapid and labored, spo2 on room air shows 98%. Patient changed into a gown, attached to the monitoring specialist.
[2020-09-24] MEDS ORDERED: ONDANSETRON HCL/PF 4 MG/2 ML VIAL IVP ONE (18:00)
[2020-09-24] MEDS ORDERED: IV NS 0.9% 1,000 ML BAG IV ONE ×2 (18:00→19:00)
--- NOTE | 2020-09-24 18:05 | NUR ---
iv line established, blood drawn and sent to lab.
[2020-09-24] MEDS ORDERED: INSU100V7 SQ (18:07)
[2020-09-24] MEDS ORDERED: AMOX500C2 PO (18:07)
[2020-09-24 18:11] LABS: BASOPHILS # (AUTO) 0.1 /CMM (0.0-0.2); BASOPHILS % (AUTO) 1.1 % (0.0-2.0); EOSINOPHILS % (AUTO) 0.2 % (0.0-6.0); HEMATOCRIT 47 % (33-45); HEMOGLOBIN 15.2 g/dL (11.5-14.8); LYMPHOCYTES # (AUTO) 1.4 /CMM (0.8-4.8); LYMPHOCYTES % (AUTO) 18.8 % (20.0-44.0); MEAN CORPUSCULAR HGB CONC 32 g/dl (31.0-36.0); MEAN CORPUSCULAR VOLUME 97 fL (82-100); MONOCYTES # (AUTO) 0.5 /CMM (0.1-1.30); NEUTROPHILS # (AUTO) 5.3 /CMM (1.8-8.9); NEUTROPHILS % (AUTO) 72.9 % (43.0-81.0); PLATELET COUNT (AUTO) 267 /CMM (150-450); RED BLOOD CELL COUNT(AUTO) 4.89 MIL/uL (4.0-5.2); WHITE BLOOD COUNT (AUTO) 7.2 K/uL (4.3-11.0)
[2020-09-24] MEDS ORDERED: ONDANSETRON HCL/PF 4 MG/2 ML VIAL ONE ×2 (18:11→20:09)
[2020-09-24 18:31] LABS: BILIRUBIN,URINE Negative (NEGATIVE); COLOR,URINE LIGHT YELLOW (YELLOW); LEUKOCYTE ESTERASE ,URINE Negative (NEGATIVE); NITRITE, URINE Negative (NEGATIVE); PROTEIN,URINE Trace mg/dl (NEGATIVE); UGLUCOSE 500 MG/DL mg/dL (NEGATIVE); UROBILINOGEN,URINE 0.2 EU/dL (0.2)
[2020-09-24 18:33] LABS: B-TYPE NATRIURETIC PEPTIDE 32 PG/ML (0-125); LIPASE 193 U/L (73-393)
[2020-09-24 18:40] LABS: ALBUMIN 4.1 g/dL (3.4-5.0); BILIRUBIN,DIRECT 0.1 mg/dL (0.0-0.2); BILIRUBIN,TOTAL 0.4 mg/dL (0.2-1.0); CALCIUM, SERUM 8.5 mg/dL (8.5-10.1); CREATININE 0.9 mg/dL (0.6-1.3); POTASSIUM 4.7 mmol/L (3.5-5.1); TOTAL PROTEIN, SERUM 8.3 g/dL (6.4-8.2)
[2020-09-24 18:48] LABS: BACTERIA,URINE Few /HPF (None Seen); SQUAMOUS EPITHELIAL CELL,UR Few /HPF (None Seen); WBC,URINE 0-2 /HPF (0-3)
[2020-09-24] MEDS ORDERED: INSULIN REGULAR, HUMAN 100 UNIT in IV NS 0.9% 99 ML IV ONE (19:00)
--- NOTE | 2020-09-24 19:05 | NUR ---
rec;d report from NICK Tillman for orin
--- NOTE | 2020-09-24 19:12 | NUR ---
COVID SWAB SENT TO LAB
--- NOTE | 2020-09-24 19:13 | NUR ---
CALLED PHARMACY FOR INSULIN DRIP
[2020-09-24] MEDS ORDERED: AMOXICILLIN TRIHYDRATE 500 MG CAPSULE PO ONE (20:00)
--- NOTE | 2020-09-24 20:07 | NUR ---
CALL FROM LAB, RAPID COVID NEGATIVE.
[2020-09-24] MEDS ORDERED: AMOXICILLIN TRIHYDRATE 250 MG CAPSULE ONE (20:10)
--- NOTE | 2020-09-24 20:26 | NUR ---
blood glucose 452
[2020-09-24] MEDS ORDERED: ONDANSETRON HCL/PF 4 MG/2 ML VIAL IV ONE (20:30)
--- NOTE | 2020-09-24 20:36 | NUR ---
urine sent to lab
--- NOTE | 2020-09-24 20:37 | NUR ---
ATTEMPTED TO GIVE REPORT. ROOM NOT READY
--- NOTE | 2020-09-24 20:44 | NUR ---
GAVE REPORT TO NICK DICKSON FOR ELIDA
[2020-09-24] MEDS ORDERED: ACETAMINOPHEN 650 MG/SUPP.RECT RC PRN (21:00)
[2020-09-24] MEDS ORDERED: IV NS 0.9% 1,000 ML IV PRN (21:00)
[2020-09-24] MEDS ORDERED: ONDANSETRON HCL/PF 4 MG/2 ML VIAL IVP PRN (21:00)
[2020-09-24] MEDS ORDERED: INSULIN REGULAR, HUMAN 100 UNIT in IV NS 0.9% 99 ML IV PRN ×3 (21:00→22:30)
[2020-09-24] MEDS ORDERED: ACETAMINOPHEN 325 MG TABLET PO PRN (21:00)
[2020-09-24] MEDS ORDERED: ZOLPIDEM TARTRATE 5 MG TABLET PO PRN (21:00)
--- NOTE | 2020-09-24 21:10 | NUR ---
METAPHYSICIST NOTE ADMITTED 39 YEARS OLD PT FROM ER WITH THE DX OF DKA BY SAMIR LYLE NP. PT IS A/O X 4, NO SOB, NO DISTRESS OR DISCOMFORT NOTED. DENIES PAIN. SKIN INTACT. SR 70. VSS. PT IS GETTING INSULIN DRIP AT 4 UNITS/PER. BS CHECKED 377. ADMITTING ORDERS CHECKED AND CARRIED OUT. SIDE RAILS UP X 2 AND CALL LIGHT WITHIN REACH. VSS. CONTINUE TO MONITOR HER.
[2020-09-24 21:16] VITALS: BP 142/66
[2020-09-24] MEDS: BLOOD SUGAR DIAGNOSTIC 1 EACH STRIP IN SCH ×3 (21:18→23:06)
--- NOTE | 2020-09-24 21:38 | NUR ---
DIRECTOR BUSINESS INTELLIGENCE NOTE CHARGE NURSE TALKED WITH SAMIR LYLE NP AND RECEIVED NEW ORDER, INSULIN DRIP CHANGED TO 6 UNITS/HR PER INSULIN DRIP SCALE. CONTINUE TO MONITOR BS QHR ORDERED.
[2020-09-24 22:00] VITALS: BP 142/51
[2020-09-24 23:00] VITALS: BP 124/76
[2020-09-24 23:25] LABS: CALCIUM, SERUM 7.7 mg/dL (8.5-10.1); CREATININE 0.7 mg/dL (0.6-1.3); POTASSIUM 3.5 mmol/L (3.5-5.1)
--- NOTE | 2020-09-24 23:32 | NUR ---
@5849 AB ORDER. UNSUCCESSFUL, PT SAID TO COME BACK IN AN HOUR. ASKED PT IF OK AND SHE REFUSED SECOND STICK. GAMMA FACILITIES OPERATOR NOTIFIED.
--- NOTE | 2020-09-24 23:40 | NUR ---
RN/ICU-PT. REFUSED ABG BLOOD DRAW, ACNP Adina YLLE MADE AWARE, NO FURTHER ORDER.
[2020-09-25] VITALS (21 sets, daily range): BP systolic 97–118; BP diastolic 55–71
[2020-09-25] MEDS: BLOOD SUGAR DIAGNOSTIC 1 EACH STRIP IN SCH ×16 (00:12→15:41)
[2020-09-25] MEDS ORDERED: IV PREMIX NS +20MEQ KCL 1 L IV ONE (00:27)
[2020-09-25] MEDS ORDERED: Potassium Chloride 20 MEQ in IV NS 0.9% 1,000 ML IV PRN (00:30)
[2020-09-25 03:22] LABS: BASOPHILS # (AUTO) 0.1 /CMM (0.0-0.2); BASOPHILS % (AUTO) 0.8 % (0.0-2.0); EOSINOPHILS % (AUTO) 1.2 % (0.0-6.0); HEMATOCRIT 38 % (33-45); HEMOGLOBIN 12.8 g/dL (11.5-14.8); LYMPHOCYTES # (AUTO) 2.8 /CMM (0.8-4.8); LYMPHOCYTES % (AUTO) 38.2 % (20.0-44.0); MEAN CORPUSCULAR HGB CONC 33 g/dl (31.0-36.0); MEAN CORPUSCULAR VOLUME 93 fL (82-100); MONOCYTES # (AUTO) 1.1 /CMM (0.1-1.30); MONOCYTES % (AUTO) 14.5 % (2.0-12.0); NEUTROPHILS # (AUTO) 3.4 /CMM (1.8-8.9); NEUTROPHILS % (AUTO) 45.3 % (43.0-81.0); PLATELET COUNT (AUTO) 225 /CMM (150-450); RED BLOOD CELL COUNT(AUTO) 4.13 MIL/uL (4.0-5.2); WHITE BLOOD COUNT (AUTO) 7.4 K/uL (4.3-11.0)
[2020-09-25 03:32] LABS: CALCIUM, SERUM 7.9 mg/dL (8.5-10.1); CREATININE 0.7 mg/dL (0.6-1.3); MAGNESIUM 1.6 mg/dL (1.8-2.4); PHOSPHORUS 2.1 mg/dL (2.5-4.9); POTASSIUM 3.2 mmol/L (3.5-5.1)
[2020-09-25] MEDS ORDERED: POTASSIUM CL. PREMIX PERIPHER. 50 ML IV SCH (04:30)
--- NOTE | 2020-09-25 04:30 | NUR ---
FISHING FLOATS ASSEMBLER NOTE INFORMED SAMIR LYLE. OFFICE SUPPORT ASSISTANT REGARDING ANION GAP AT 14, K 3.2 AND NA 134. BS 223. SAMIR GAVE NEW ORDER, ORDER NOTED AND CARRIED OUT.
--- NOTE | 2020-09-25 04:41 | NUR ---
PREP MANAGER NOTE ONE BAG OF 10 MEQ KCL HUNGED AND INFUSED AT 100 ML/HR. FOR K 3.2.
[2020-09-25] MEDS ORDERED: Potassium Chloride 20 MEQ in IV D5/0.45 NACL 1,000 ML IV PRN (05:30)
[2020-09-25] MEDS: Magnesium 1GM/D5W 100ML PREMIX 100 ML IV SCH ×2 (05:33→06:54)
[2020-09-25] MEDS ORDERED: IV PREMIX D5 1/2NS + KCL 1,000 ML IV ONE (05:42)
--- NOTE | 2020-09-25 06:25 | NUR ---
RECEPTION INTERVIEWER NOTE PT IN BED AWAKE. NO DISTRESS OR DISCOMFORT NOTED. D5 1/2 NS INFUSING AT 100 ML/HR , 1 G MG AND 10 MEQ KCL ALSO INFUSING, CONTINUE WITH 0.5 UNITS PER HOUR INSULIN DRIP ON. WILL ENDORSE TO DAY SHIFT NURSE TO FOLLOW UP.
[2020-09-25 07:14] LABS: CALCIUM, SERUM 8.3 mg/dL (8.5-10.1); CREATININE 0.5 mg/dL (0.6-1.3); POTASSIUM 3.5 mmol/L (3.5-5.1)
--- NOTE | 2020-09-25 07:30 | NUR ---
HYDRO GENERATION MANAGER OPENING NOTES Patient is alert and oriented. Patient is resting well in bed and doesn't show any s/s of respiratory distress. No c/o pain or discomfort. Patient is on insulin drip 3 units per hour. Patient is IV fluids D5 1/2 normal saline 100 ml /hour with 20 meq kcl. Patient does not have any s.s of hyperglycemia. Will continue to monitor. Bed is in lowest and locked position. Call light with in reach.
--- NOTE | 2020-09-25 08:30 | NUR ---
RT : PATIENT IS AWAKE AND ALERT. PATIENT REFUSED ABG AT THIS TIME AND RN AWARED.
[2020-09-25] MEDS: AMOXICILLIN TRIHYDRATE 250 MG CAPSULE PO SCH ×3 (09:28→21:18)
[2020-09-25] MEDS: METHIMAZOLE (5MG) 5 MG TABLET PO SCH (09:28)
[2020-09-25] MEDS: PANTOPRAZOLE 40 MG TABLET.DR PO SCH (09:28)
[2020-09-25] MEDS ORDERED: K PHOS NEUTRAL 250 MG TABLET PO ONE (12:30)
[2020-09-25 12:34] LABS: CALCIUM, SERUM 8.1 mg/dL (8.5-10.1); CREATININE 0.4 mg/dL (0.6-1.3); POTASSIUM 3.3 mmol/L (3.5-5.1)
[2020-09-25 15:18] LABS: CALCIUM, SERUM 8.1 mg/dL (8.5-10.1); CREATININE 0.4 mg/dL (0.6-1.3); POTASSIUM 3.4 mmol/L (3.5-5.1)
--- NOTE | 2020-09-25 16:05 | NUR ---
MD UPDATED REGARDING PATIENT'S CONDITION AND CURRENT POTASSIUM LEVELS AND RECEIVED ORDERS PATIENT'S INSULIN DRIP STOPPED PER MD ORDER. NEW ORDERS RECEIVED FOR MODERATE SLIDING SCALE INSULIN, LANTUS AT HS, KCL 80 MEQ ONCE AND TO TRANSFER PATIENT TO TELE. ORDERS NOTED AND CARRIED OUT.
[2020-09-25] MEDS ORDERED: DEXTROSE 50%-WATER 50 ML DISP.SYRIN IV PRN (16:30)
[2020-09-25] MEDS ORDERED: *INSULIN REGULAR(HUMULIN R)HUM 100 UNIT/ML VIAL SQ PRN (16:30)
[2020-09-25] MEDS ORDERED: POTASSIUM CHLORIDE 20 MEQ TAB.PRT.SR PO ONE (17:00)
[2020-09-25] MEDS: INSULIN REGULAR, HUMAN 100 UNIT/ML 3 ML VIAL SQ PRN ×2 (18:03→22:33)
[2020-09-25] MEDS: BLOOD SUGAR DIAGNOSTIC 1 EACH STRIP VI SCH ×2 (18:03→22:46)
--- NOTE | 2020-09-25 19:00 | NUR ---
REceived patient awake,alert,converses,coherent and appropriate,not in any distress,denies any pain.Awaiting transfer to [facility] once nurse ready to accept patient ,needs attended.Been off insulin drip,on fS check q Ac and HS . Addendum: 09/25/20 at 2037 by LONDON ZEPEDA RN For transfer to telemetry Rm# [phone]
--- NOTE | 2020-09-25 19:08 | NUR ---
INSURANCE AGENTS SUPERVISOR CLOSING NOTES Patient is alert and oriented. Patient is resting well in bed and doesn't show any s/s of respiratory distress. No c/o pain or discomfort. Patient insulin drip was discontinued at 1600 pm. Patient does not have any s.s of hyperglycemia. Will continue to monitor. Bed is in lowest and locked position. Call light with in reach. Endorsed to next shift for ELIDA.
--- NOTE | 2020-09-25 20:05 | NUR ---
Transfered to tele Rm # [phone] ,report given to Fanny ROMERO.
--- NOTE | 2020-09-25 20:25 | NUR ---
HEAD GRINDER ADMITTING NOTES PATIENT WAS TRANSFERRED TO THIS UNIT FROM ICU. PATIENT ARRIVED TO THE UNIT VIA GURNEY ACCOMPANIED BY NURSE BRITT. PATIENT IS ALERT AND ORIENTED X4. PATIENT IS ABLE TO MAKE HER NEEDS KNOWN. PATIENT IS ON ROOM AIR WITH NO RESPIRATORY DISTRESS. PATIENT WAS PLACED ON A TELE MONITOR. PATIENT HAS IV ACCESSES ON HER RAC G#18 AND LAC G#20. PATIENT WAS ORIENTED TO THE STAFF AND ROOM. SAFETY MEASURES IMPLEMENTED. BED IN LOWEST POSITION. BED LOCKED. SIDE RAILS UP. WILL CONTINUE TO MONITOR THE PATIENT.
[2020-09-25] MEDS ORDERED: INSULIN GLARGINE, 100 UNIT/ML CARTRIDGE SQ SCH (22:00)
--- NOTE | 2020-09-25 22:47 | NUR ---
CUPOLA MELTER NOTES PATIENT'S BLOOD SUGAR AT 2247 WAS 410 MG/DL. PER INSULIN ORDERS, 15 UNITS OF REGULAR INSULIN WAS GIVEN AND 20 UNITS OF LANTUS WAS GIVEN. PER INSULIN ORDER, WILL NOTIFY MD IF BLOOD SUGAR WAS OVER 400 MG/DL. Addendum: 09/26/20 at 0152 by JEET IVORY RN CUPOLA MELTER NOTES RN CASE MGR MD WAS MADE AWARE OF THE PATIENT'S BLOOD SUGAR OF 410 MG/DL. RN CASE MGR MD CONSENTED FOR THE NURSE TO GIVE 15 UNITS OF REGULAR INSULIN. PATIENT'S BLOOD SUGAR AT 0006 ON 09/26/2020 WAS 340 MG/DL. WILL CONTINUE TO MONITOR THE PATIENT.
[2020-09-26] VITALS: BP 110/66
[2020-09-26 00:18] VITALS: BP 110/66
[2020-09-26 04:00] VITALS: BP 95/65
[2020-09-26 06:10] LABS: BASOPHILS % (AUTO) 0.9 % (0.0-2.0); EOSINOPHILS % (AUTO) 1.7 % (0.0-6.0); HEMATOCRIT 38 % (33-45); LYMPHOCYTES # (AUTO) 2.1 /CMM (0.8-4.8); MEAN CORPUSCULAR HGB CONC 34 g/dl (31.0-36.0); MEAN CORPUSCULAR VOLUME 92 fL (82-100); MONOCYTES # (AUTO) 0.7 /CMM (0.1-1.30); MONOCYTES % (AUTO) 13.7 % (2.0-12.0); NEUTROPHILS # (AUTO) 2.1 /CMM (1.8-8.9); NEUTROPHILS % (AUTO) 41.7 % (43.0-81.0); PLATELET COUNT (AUTO) 204 /CMM (150-450); RED BLOOD CELL COUNT(AUTO) 4.15 MIL/uL (4.0-5.2); WHITE BLOOD COUNT (AUTO) 5.1 K/uL (4.3-11.0)
[2020-09-26] MEDS: INSULIN REGULAR, HUMAN 100 UNIT/ML 3 ML VIAL SQ PRN ×2 (06:54→11:26)
[2020-09-26 06:57] LABS: CALCIUM, SERUM 8.1 mg/dL (8.5-10.1); CREATININE 0.3 mg/dL (0.6-1.3); MAGNESIUM 1.9 mg/dL (1.8-2.4); PHOSPHORUS 2.6 mg/dL (2.5-4.9); POTASSIUM 3.7 mmol/L (3.5-5.1)
[2020-09-26] MEDS: BLOOD SUGAR DIAGNOSTIC 1 EACH STRIP VI SCH ×2 (07:20→11:27)
--- NOTE | 2020-09-26 07:25 | NUR ---
HOG STOMACH PREPARER OPENING NOTES PATIENT IS ALERT AND ORIENTED X4. PATIENT IS ABLE TO MAKE HER NEEDS KNOWN. PATIENT IS ON ROOM AIR WITH NO RESPIRATORY DISTRESS. PATIENT IS CURRENTLY ON TELE MONITOR SHOWING SINUS RHYTHM. PATIENT HAS IV ACCESSES ON HER RAC G#18 AND LAC G#20, PATENT AND INTACT. PATIENT IS COMPLAINING OF SOME PAIN AND HEADACHE. WILL GIVE PRN PAIN MEDICATION. SAFETY MEASURES IMPLEMENTED. BED IN LOWEST POSITION. BED LOCKED. SIDE RAILS UP. WILL CONTINUE TO MONITOR THE PATIENT
--- NOTE | 2020-09-26 07:29 | NUR ---
COFFIN MAKER CLOSING NOTES PATIENT WAS LAST SEEN AWAKE IN BED. PATIENT IS ALERT AND ORIENTED X4. PATIENT IS ABLE TO MAKE HER NEEDS KNOWN. PATIENT IS ON ROOM AIR WITH NO RESPIRATORY DISTRESS. PATIENT HAS IV ACCESSES ON HER RAC G#18 AND LAC G#20. BOTH IV ACCESSES INTACT AND PATENT. PATIENT'S BLOOD SUGAR BEFORE BREAKFAST WAS 156 MG/DL. 2 UNITS OF REGULAR INSULIN WAS GIVEN. SAFETY MEASURES IMPLEMENTED. BED IN LOWEST POSITION. BED LOCKED. SIDE RAILS UP. ENDORSED CARE TO DAY SHIFT NURSE.
[2020-09-26 08:00] VITALS: BP 102/69
[2020-09-26 08:01] VITALS: BP 102/69
[2020-09-26] MEDS: METHIMAZOLE (5MG) 5 MG TABLET PO SCH (08:11)
[2020-09-26] MEDS: PANTOPRAZOLE 40 MG TABLET.DR PO SCH (08:11)
[2020-09-26] MEDS: AMOXICILLIN TRIHYDRATE 250 MG CAPSULE PO SCH ×2 (08:11→12:01)
--- NOTE | 2020-09-26 13:18 | NUR ---
HUMAN RESOURCES HR REPRESENTATIVE NOTE RECEIVED ORDER FOR DISCHARGE. PATIENT IS A/O X4, BREATHING EVENLY AND UNLABORED ON ROOM AIR. PATIENT IS CURRENTLY SHOWING NO SIGNS OR SYMPTOMS OF DISTRESS, NOT COMPLAINING OF ANY PAIN OR DISCOMFORT. PATIENT'S IV ACCESS AND ID WERE REMOVED. DISCHARGE INSTRUCTIONS WERE GIVEN BOTH VERBALLY AND WRITTEN. PATIENT VERBALIZED UNDERSTANDING. PATIENT WAS PICKED UP BY PRIVATE CAR BY HER SISTER. PATIENT LEFT IN STABLE CONDITION.
== END 2020-09-26 13:00 | disposition home or self-care (01) | DRG 420 ==
LOC: ER 17:35 → ICU 20:11 → TELE 09-25 20:13 → MED 09-26 08:17
PROVIDERS: ADMIT Nurse Practitioner Acute Care; ATTEND Internal Medicine
DX: E11.10 Type 2 diabetes mellitus with ketoacidosis without coma (principal); E87.1 Hypo-osmolality and hyponatremia; E05.90 Thyrotoxicosis, unspecified without thyrotoxic crisis or storm; K02.9 Dental caries, unspecified; Z79.4 Long term (current) use of insulin; F19.11 Other psychoactive substance abuse, in remission; Z91.19 Patient's noncompliance with other medical treatment and regimen; Z20.822 Contact with and (suspected) exposure to COVID-19
CPT/HCPCS: 36415; 71045-TC; 80048-TC; 80076-TC; 81001; 82010-TC; 82962-TC; 83690-TC; 83735-TC; 83880; 84100-TC; 84443-TC; 84484-TC; 84703-TC; 85025-TC; 87081-TC; C9803; G0378; J1815; J2405; J3475; J3480; J3490; J7030